=== PATIENT | female | born 1985 | race Hispanic/Latino ===

== ENCOUNTER 2016-10-22 10:33 | Emergency (ER) | payer SELFPAY ==
[2016-10-22 11:40] LABS: Urine Drugs of Abuse Note Disclamer
[2016-10-22 12:12] LABS: Basophils % (Auto) 0.8 % (0.0-1.8); Eosinophils % (Auto) 0.1 % (0.0-4.3); Hematocrit 39.1 % (30.3-42.9); Hemoglobin 13.8 gm/dl (10.1-14.3); Mean Corpuscular HGB Conc 35 % (30-34); Mean Corpuscular Hemoglobin 33 pg (28-32); Mean Corpuscular Volume 93 fl (79-97); Platelet Count 245 K/mm3 (140-440); Red Blood Count 4.21 M/mm3 (3.65-5.03); Red Cell Distribution Width 13.8 % (13.2-15.2); White Blood Count 5.1 K/mm3 (4.5-11.0)
[2016-10-22 12:34] LABS: Anion Gap 17 mmol/L; Blood Urea Nitrogen 9 mg/dL (7-17); Calcium 9.4 mg/dL (8.4-10.2); Carbon Dioxide 26 mmol/L (22-30); Chloride 103.1 mmol/L (98-107); Creatine Kinase 176 units/L (30-135); Glucose 113 mg/dL (65-100); Potassium 3.8 mmol/L (3.6-5.0); Sodium 142 mmol/L (137-145)
[2016-10-22] MEDS ORDERED: NEURONTIN PO ONE (14:06)
--- NOTE | 2016-10-22 14:16 | Emergency Department Report ---
ED Alcohol HPI - General Chief Complaint: Alcohol Stated Complaint: WITHDRAWL SYMPTOMS Time Seen by Provider: 10/22/16 13:19 Source: patient Mode of arrival: Ambulatory Limitations: No Limitations - History of Present Illness Initial Comments: Patient is a 31-year-old female past medical history of alcohol abuse who presents with anxiety and myalgias. Patient states that she is an alcoholic she drinks 5 or 6 cocktails a day her last drink was yesterday. She presents the ED with myalgias and wanting to get her gabapentin refilled to control the symptoms. Patient does not wish to be admitted she states that she has outpatient care for alcoholism and alcohol withdrawal established. - Related Data Previous Rx's Medication Instructions Recorded Last Taken Type Gabapentin [Neurontin] 400 mg PO Q8HR #30 capsule 10/22/16 Unknown Rx Allergies Allergy/AdvReac Type Severity Reaction Status Date / Time No Known Allergies Allergy Verified 10/22/16 10:46 ED Review of Systems ROS: Stated complaint: WITHDRAWL SYMPTOMS Other details as noted in HPI Comment: All other systems reviewed and negative Constitutional: no symptoms reported Eyes: denies: eye pain, eye discharge, vision change ENT: denies: ear pain, throat pain Respiratory: denies: cough, shortness of breath, wheezing Cardiovascular: denies: chest pain, palpitations Endocrine: no symptoms reported Gastrointestinal: denies: abdominal pain, nausea, diarrhea Genitourinary: denies: urgency, dysuria, discharge Musculoskeletal: myalgia Skin: denies: rash, lesions Neurological: as per HPI Psychiatric: anxiety Hematological/Lymphatic: denies: easy bleeding, easy bruising ED Past Medical Hx - Past Medical History Previous Medical History?: Yes Hx Psychiatric Treatment: Yes (drug and alcohol abuse) - Surgical History Past Surgical History?: Yes Additional Surgical History: - Social History Smoking Status: Current Every Day Smoker Substance Use Type: Alcohol, Heroin - Medications Home Medications: Home Medications Medication Instructions Recorded Confirmed Last Taken Type Gabapentin [Neurontin] 400 mg PO Q8HR #30 capsule 10/22/16 Unknown Rx ED Physical Exam - General Limitations: No Limitations General appearance: anxious - Head Head exam: Present: atraumatic, normocephalic - Eye Eye exam: Present: normal appearance - ENT ENT exam: Present: mucous membranes moist - Neck Neck exam: Present: normal inspection - Respiratory Respiratory exam: Present: normal lung sounds bilaterally. Absent: respiratory distress - Cardiovascular Cardiovascular Exam: Present: normal rhythm, tachycardia. Absent: diastolic murmur, rubs, gallop - GI/Abdominal GI/Abdominal exam: Present: soft - Extremities Exam Extremities exam: Present: full ROM, normal capillary refill - Back Exam Back exam: Present: normal inspection - Neurological Exam Neurological exam: Present: alert, oriented X3 - Psychiatric Psychiatric exam: Present: anxious - Skin Skin exam: Present: warm, intact ED Course Vital Signs 10/22/16 10/22/16 10:46 11:04 Temperature 97.7 F Pulse Rate 149 H Respiratory 18 16 Rate Blood Pressure 102/70 O2 Sat by Pulse 97 100 Oximetry - Reevaluation(s) Reevaluation #1: 10/22/16 14:21 Discussed with patient that she will be discharged we'll give her oral Klonopin and gabapentin. 10/22/16 14:21 Patient agrees with plan. 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 ED Medical Decision Making - Lab Data Result diagrams: 10/22/16 11:57 10/22/16 11:57 - EKG Data 10/22/16 14:26 EKG shows sinus tacycardia QTC is 480, Normal axis and normal rhythm, possible left atrial enlargement. No prior EKG to compare to. - Medical Decision Making CDx: Myalgias secondary to alcohol withdrawal DDX: Metabolic abnormality, hypokalemia, alcohol intoxication, anxiety We'll get CBC, BMP, urine drug screen, urinalysis, We'll give patient Klonopin and oral gabapentin I will send patient home with oral prescription for gabapentin. Critical care attestation.: If time is entered above; I have spent that time in minutes in the direct care of this critically ill patient, excluding procedure time. ED Disposition Clinical Impression: Myalgia, Anxiety, Alcohol dependence with uncomplicated withdrawal Disposition: DC-01 TO HOME OR SELFCARE Is pt being admited?: No Does the pt Need Aspirin: No Condition: Fair Additional Instructions: Please return to the ED if you are experiencing worsening symptoms. Prescriptions: Gabapentin [Neurontin] 400 mg PO Q8HR #30 capsule Referrals: PRIMARY CARE, [Primary Care Provider] - 3-5 Days Time of Disposition: 14:42
[2016-10-22 15:23] VITALS: BP 109/77
== END 2016-10-22 14:55 | disposition home or self-care (01) ==
LOC: ED 10:33
DX: M79.1 Myalgia (principal); F41.9 Anxiety disorder, unspecified; F10.230 Alcohol dependence with withdrawal, uncomplicated; F11.10 Opioid abuse, uncomplicated; F17.210 Nicotine dependence, cigarettes, uncomplicated
CPT/HCPCS: 36415; 80048; 80307; 81025; 82550; 82553; 84484; 85025; 93005; 93010; 99283